=== PATIENT | female | born 1960 | race Two or more races ===

== ENCOUNTER 2017-09-26 16:45 | Inpatient (IN) | payer BC ==
[~2017-09-26] VITALS: Ht 152.4 cm; Wt 96.3 kg
[~2017-09-26 16:45] MED LIST: ADALIMUMAB; FISH OIL 1,2001 EAC5 PO; SUPER B COMPLE1 EAC1 PO; Z.0.ALLEGRA180 MG PO; Z.0.HYDROXYCHLOROQ20 PO; Z.0.NORCO 10-325 T1 PO; [UNRECOGNIZED DRUG - CODE]; [UNRECOGNIZED DRUG - OTHER]; [UNRECOGNIZED DRUG - OTHER] TP
[2017-09-26 19:28] LABS: BASOPHILS # (AUTO) 0.1 (0.0-0.1); BASOPHILS % 0.7 % (0.0-1.0); EOSINOPHILS # (AUTO) 0.1 (0.0-0.4); EOSINOPHILS % 0.5 % (0.0-6.0); HEMATOCRIT 34.8 % (34.2-44.1); HEMOGLOBIN 11.9 g/dL (12.0-16.0); LYMPHOCYTES # (AUTO) 1.3 (1.0-3.2); LYMPHOCYTES % 6.4 % (18.0-39.1); MEAN CORPUSCULAR HEMOGLOBIN 26.3 pg (28-32); MEAN CORPUSCULAR HGB CONC 34.2 g/dL (31-35); MONOCYTES # (AUTO) 2.1 (0.2-0.8); MONOCYTES % 10.3 % (4.4-11.3); NEUTROPHILS # (AUTO) 15.2 (2.1-6.9); NEUTROPHILS % 76.1 % (38.7-80.0); PLATELET COUNT 380 x10e3/uL (140-360); RED BLOOD COUNT 4.52 x10e6/uL (3.6-5.1); RED CELL DISTRIBUTION WIDTH 16.5 % (11.7-14.4)
[2017-09-26] MEDS ORDERED: CEFTRIAXONE SOD 1 GM VIAL IV ONE (19:30)
[2017-09-26] MEDS ORDERED: SODIUM CHLORIDE 0.9% 1000ML 1,000 ML IV ONE (19:30)
[2017-09-26] MEDS ORDERED: ASPIRIN 81 MG CHEW TAB PO ONE (19:30)
[2017-09-26] MEDS ORDERED: ACETAMINOPHEN 1000 MG/100 ML IV STA (19:40)
[2017-09-26 19:42] LABS: ALANINE AMINOTRANSFERASE 101 IU/L (0-55); ALBUMIN 2.1 g/dL (3.5-5.0); ALBUMIN/GLOBULIN RATIO 0.4 (0.8-2.0); ALKALINE PHOSPHATASE 123 IU/L (40-150); ANION GAP 21.3 mmol/L (8-16); BLOOD UREA NITROGEN 27 mg/dL (7-26); BUN/CREATININE RATIO 31 (6-25); CARBON DIOXIDE 23 mmol/L (22-29); CHLORIDE 86 mmol/L (98-107); CREATININE, SERUM 0.87 mg/dL (0.57-1.11); EST GLOMERULAR FILTRATION RATE > 60 ML/MIN (60-); GLUCOSE 81 mg/dL (74-118); POTASSIUM 3.3 mmol/L (3.5-5.1); SODIUM 127 mmol/L (136-145)
[2017-09-26 19:44] LABS: CLARITY,URINE CLOUDY (CLEAR); COLOR,URINE YELLOW (YELLOW); LEUKOCYTE ESTERASE ,URINE TRACE (NEGATIVE); NITRITE,URINE NEGATIVE (NEGATIVE)
[2017-09-26 19:45] LABS: BILIRUBIN,URINE 3+ (NEGATIVE); KETONES,URINE 2+ (NEGATIVE); PROTEIN,URINE DIPSTICK 2+ (NEGATIVE); URINE UROBILINOGEN 1 mg/dL (0.2 - 1)
[2017-09-26 19:55] LABS: BACTERIA,URINE FEW /HPF; EPITHELIAL CELLS,URINE MODERATE /LPF; MUCUS,URINE FEW (RARE); WBC,URINE (MAN) 21-50 /HPF (0-5)
[2017-09-26 19:59] LABS: CREATINE KINASE MB 2.1 ng/mL (0-5.0)
[2017-09-26 20:00] VITALS: BP 181/80
[2017-09-26 20:07] LABS: EOSINOPHILS % (MANUAL) 2 % (0-7); HYPOCHROMASIA MARKED; LYMPHOCYTES % (MANUAL) 9 % (19-48); MONOCYTES % (MANUAL) 11 % (3.4-9.0); NEUTROPHILS % (MANUAL) 75 % (40-74); POLYCHROMASIA FEW; RBC MORPHOLOGY COMMENT ABNORMAL
[2017-09-26 20:08] LABS: PLATELET ESTIMATE ADEQUATE
--- NOTE | 2017-09-26 20:08 | Diagnostic Imaging Report ---
EXAMINATION: PA and lateral views of the chest. COMPARISON: None CLINICAL HISTORY: Low blood oxygen, low O2 sats saturation, history of hypertension DISCUSSION: Lines/tubes: None. Lungs: Lungs are well inflated. Linear opacities likely located in the lingula, consistent with subsegmental atelectasis. No consolidation or pulmonary edema. Pleura: There is no pleural effusion or pneumothorax. Heart and mediastinum: Cardiomediastinal silhouette is unremarkable. Pulmonary vasculature is normal. Bones and soft tissues: No acute bony abnormalities. Minimal degenerative changes in the thoracic spine IMPRESSION: No acute cardiopulmonary abnormalities.
[2017-09-26 20:33] LABS: AMYLASE 32 U/L (25-125); LIPASE 35 U/L (8-78)
--- NOTE | 2017-09-26 22:41 | Diagnostic Imaging Report ---
EXAM: US ABDOMEN COMPLETE DATE: 09/26/2017 12:00 AM INDICATION: Evaluate liver and gallbladder, COMPARISON: None TECHNIQUE: Transverse and longitudinal davalos scale and color doppler sonographic images of the upper abdomen were obtained. FINDINGS: LIVER 16.6 cm in the right midclavicular line. Increased echogenicity, normal contour, no masses. SPLEEN 10.7 cm in maximum diameter. GALLBLADDER Gallbladder sludge without stones, wall-thickening or pericholecystic fluid. Negative sonographic Painter's sign. BILE DUCTS No intra nor extra-hepatic biliary dilation. Common bile duct measures 0.4 cm PANCREAS: Not well-visualized due to overlying bowel gas RIGHT KIDNEY: 11.6 cm Echogenicity: Normal Collecting System: No hydronephrosis Stones: None Cyst/Mass: None LEFT KIDNEY: 11.4 cm Echogenicity: Normal Collecting System: No hydronephrosis Stones: 0.5 cm echogenic focus of the lower pole, possibly a stone Cyst/Mass: 0.8 x 0.6 x 0.9 cm cyst VESSELS: Aorta: Not well-visualized due to overlying bowel gas Inferior Vena Cava: Visualized portions are normal Main Portal Vein: 1.0 cm, normal size with hepatopetal flow. FREE FLUID: None IMPRESSION: 1. Hepatic steatosis. 2. Gallbladder sludge without evidence of acute cholecystitis. Signed by: Dr Shannan Ayon MD on 09/26/2017 10:37 PM
[2017-09-26] MEDS ORDERED: [UNRECOGNIZED DRUG - OTHER] PO (22:51)
[2017-09-26] MEDS ORDERED: ZOFRAN ODT4 MG PO (22:51)
[2017-09-26] MEDS ORDERED: TRIAMTERENE-HCTZ1 EA PO (22:51)
[2017-09-26] MEDS ORDERED: NEXIUM40 MG PO (22:51)
[2017-09-26] MEDS ORDERED: NORCO 10-325 T1 EACH PO (22:51)
[2017-09-26] MEDS ORDERED: METFORMIN HCL500 MG PO (22:51)
[2017-09-26] MEDS ORDERED: MELOXICAM7.5 MG PO (22:51)
[2017-09-26] MEDS ORDERED: ULTRAM 50MG50 MG PO (22:51)
[2017-09-26] MEDS ORDERED: LOSARTAN POTAS100 MG PO (22:51)
[2017-09-26] MEDS ORDERED: ACETAMINOPHEN 1000 MG/100 ML IV PRN (23:15)
[2017-09-26] MEDS ORDERED: ONDANSETRON HCL INJ 2 MG/ML VIAL IV PRN (23:15)
[2017-09-26] MEDS ORDERED: CEFTRIAXONE SOD 1 GM VIAL IV SCH (23:15)
--- OUTSIDE RECORDS SUMMARY | 2017-09-26 23:19 | XMS REPORT ---
Author Author [facility] Address Unknown Phone Unavailable Care Team Providers Care Certified Tumor Registrar Name Role Phone DEREK READ Unavailable Unavailable Problems This patient has no known problems. Allergies, Adverse Reactions, Alerts This patient has no known allergies or adverse reactions. Medications This patient has no known medications. Results Test Description Test Time Test Comments Text Results Atomic Results Result Comments US ABDOMEN COMPLETE [place] [address] Patient Name: BUDDY BAY MR #: [id number] : 1960 Age/Sex: 56/F Req #: [id number] Adm Physician: Ordered by: LEONID ANDRE MD Report #: [id number] Location: ER Room/Bed: ___ Procedure: [id number] US/US ABDOMEN COMPLETE Exam Date: 09/26/17 Exam Time: 2151 REPORT STATUS: Signed EXAM: US ABDOMEN COMPLETE DATE: 09/26/2017 12:00 AM INDICATION: Evaluate liver and gallbladder, COMPARISON: None TECHNIQUE: Transverse and longitudinal davalos scale and color doppler sonographic images of the upper abdomen were obtained. FINDINGS: LIVER 16.6 cm in the right midclavicular line. Increased echogenicity, normal contour, no masses. SPLEEN 10.7 cm in maximum diameter. GALLBLADDER Gallbladder sludge without stones, wall-thickening or pericholecystic fluid. Negative sonographic Painter's sign. BILE DUCTS No intra nor extra-hepatic biliary dilation. Common bile duct measures 0.4 cm PANCREAS: Not well-visualized due to overlying bowel gas RIGHT KIDNEY: 11.6 cm Echogenicity: Normal Collecting System: No hydronephrosis Stones: None Cyst/Mass: None LEFT KIDNEY: 11.4 cm Echogenicity: Normal Collecting System: No hydronephrosis Stones: 0.5 cm echogenic focus of the lower pole, possibly a stone Cyst/Mass: 0.8 x 0.6 x 0.9 cm cyst VESSELS: Aorta: Not well- visualized due to overlying bowel gas Inferior Vena Cava: Visualized portions are normal Main Portal Vein: 1.0 cm, normal size with hepatopetal flow. FREE FLUID: None IMPRESSION: 1. Hepatic steatosis. 2. Gallbladder sludge without evidence of acute cholecystitis. Signed by: Dr Wayne Ayon MD on 09/26/2017 10:37 PM Dictated By: WAYNE AYON MD 36 Transcribed By: LEON on 09/26/172236 COPY TO: LEONID ANDRE MD
[2017-09-27 00:10] VITALS: BP_SYST 124; BP_SYST 154; BP_DIAS 74
[2017-09-27 04:00] VITALS: BP 189/88
[2017-09-27 06:29] LABS: BASOPHILS # (AUTO) 0.1 (0.0-0.1); BASOPHILS % 0.4 % (0.0-1.0); EOSINOPHILS # (AUTO) 0.1 (0.0-0.4); EOSINOPHILS % 0.6 % (0.0-6.0); HEMATOCRIT 34.6 % (34.2-44.1); HEMOGLOBIN 11.6 g/dL (12.0-16.0); LYMPHOCYTES # (AUTO) 0.9 (1.0-3.2); LYMPHOCYTES % 5.2 % (18.0-39.1); MEAN CORPUSCULAR HEMOGLOBIN 26.2 pg (28-32); MEAN CORPUSCULAR HGB CONC 33.5 g/dL (31-35); MEAN CORPUSCULAR VOLUME 78.3 fL (81-99); MONOCYTES # (AUTO) 1.8 (0.2-0.8); MONOCYTES % 10.2 % (4.4-11.3); NEUTROPHILS # (AUTO) 13.1 (2.1-6.9); NEUTROPHILS % 75.6 % (38.7-80.0); PLATELET COUNT 321 x10e3/uL (140-360); RED BLOOD COUNT 4.42 x10e6/uL (3.6-5.1); RED CELL DISTRIBUTION WIDTH 16.1 % (11.7-14.4)
[2017-09-27] MEDS: KCL 20MEQ/.9 SOD CHL 1,000 ML IV SCH ×2 (06:44→23:15)
[2017-09-27 06:54] LABS: ALANINE AMINOTRANSFERASE 147 IU/L (0-55); ALBUMIN 1.9 g/dL (3.5-5.0); ALBUMIN/GLOBULIN RATIO 0.4 (0.8-2.0); ALKALINE PHOSPHATASE 173 IU/L (40-150); ANION GAP 16.1 mmol/L (8-16); BLOOD UREA NITROGEN 22 mg/dL (7-26); BUN/CREATININE RATIO 29 (6-25); CALCIUM 9.2 mg/dL (8.4-10.2); CARBON DIOXIDE 24 mmol/L (22-29); CHLORIDE 93 mmol/L (98-107); CREATININE, SERUM 0.75 mg/dL (0.57-1.11); EST GLOMERULAR FILTRATION RATE > 60 ML/MIN (60-); GLUCOSE 96 mg/dL (74-118); POTASSIUM 3.1 mmol/L (3.5-5.1); SODIUM 130 mmol/L (136-145)
[2017-09-27 07:45] VITALS: BP 168/91
[2017-09-27 07:56] LABS: EOSINOPHILS % (MANUAL) 1 % (0-7); LYMPHOCYTES % (MANUAL) 5 % (19-48); MONOCYTES % (MANUAL) 13 % (3.4-9.0); NEUTROPHILS % (MANUAL) 78 % (40-74)
[2017-09-27 07:57] LABS: PLATELET ESTIMATE ADEQUATE; PLATELET MORPHOLOGY COMMENT NORMAL; RBC MORPHOLOGY COMMENT NORMAL
[2017-09-27 08:00] VITALS: BP 168/91
[2017-09-27] MEDS ORDERED: SINCALIDE 3 MCG/VIAL INJ ONE (09:55)
[2017-09-27] MEDS ORDERED: MORPHINE SULFATE 2 MG/ML SYR IV STA (11:58)
[2017-09-27 16:00] VITALS: BP 164/116
[2017-09-27] MEDS ORDERED: TRAMADOL HCL 50 MG TAB PO PRN (18:00)
[2017-09-27] MEDS ORDERED: ONDANSETRON HCL 4 MG ORAL DISINTEGRATING TAB PO PRN (18:00)
--- NOTE | 2017-09-27 18:56 | Diagnostic Imaging Report ---
EXAM: HIDA Scan with Morphine Challenge INDICATION: 56 F with chronic abdominal pain and nausea and vomiting x 10 days Report: Following the administration of 7 mCi of Tc-99m mebrofenin, dynamic images of the abdomen in the anterior projection were obtained through 60 minutes. An additional static image was obtained at 90 minutes. Morphine sulfate 4 mg was administered intravenously and additional images were obtained through 30 minutes. Perfusion of the liver is normal. Extraction of tracer from the blood pool by the liver parenchyma is mildly decreased. Tracer appears promptly with in the biliary tract. Tracer is seen in the small bowel by 8 minutes post injection of the tracer. The gallbladder does not fill during the initial 60 minutes of imaging or at 90 minutes but does fill promptly following administration of morphine. Impression: Filling of the gallbladder excludes acute cystic duct obstruction/acute cholecystitis. Signed by: Dr. Britany Hubbard M.D. on 09/27/2017 6:53 PM
[2017-09-27] MEDS ORDERED: DIATRIZOATE MEGL/DIATRIZOA SOD 30 ML BTL PO ONE (20:51)
[2017-09-27] MEDS ORDERED: SODIUM CHLORIDE 0.9% 50ML 50 ML ONE (22:40)
[2017-09-27] MEDS ORDERED: IOPAMIDOL 370 MG/ML 200 ML INFUS..BTL INJ ONE (22:40)
--- NOTE | 2017-09-27 22:51 | Diagnostic Imaging Report ---
EXAM: CT ABDOMEN/PELVIS W DATE: 09/27/2017 8:44 PM INDICATION: Gallbladder dysfunction, right upper quadrant pain COMPARISON: None TECHNIQUE: The abdomen and pelvis were scanned using a multidetector helical scanner. Coronal and sagittal reformations were obtained. Routine protocol performed. IV Contrast: 100 ml Isovue 370 FINDINGS: LOWER THORAX: Minimal atelectasis/scarring. LIVER/BILIARY: Hepatic steatosis. No masses. No ductal dilatation. GALLBLADDER: Unremarkable SPLEEN: Unremarkable PANCREAS: Unremarkable ADRENALS: Indeterminate 1.4 cm right adrenal nodule. KIDNEYS: Heterogeneous diminished enhancement of the right kidney with perinephric and periureteral stranding as well as urothelial thickening. Subcentimeter too small to characterize left interpolar renal hypodensity, statistically a cyst. GI TRACT: No wall thickening or evidence of obstruction. Normal appendix. Extensive diverticulosis. VESSELS: Mild atherosclerotic PERITONEUM/RETROPERITONEUM: No free air or fluid LYMPH NODES: No lymphadenopathy REPRODUCTIVE ORGANS/BLADDER: Unremarkable SOFT TISSUES: Unremarkable BONES: No suspicious bone lesions. IMPRESSION: Findings of right pyelonephritis/pyelitis. Signed by: Dr Shannan Ayon MD on 09/27/2017 10:47 PM
[2017-09-27] MEDS: CEFTRIAXONE SOD 1 GM VIAL IV SCH (23:07)
[2017-09-27] MEDS ORDERED: AMLODIPINE BESYLATE 5 MG TAB PO ONE (23:30)
[2017-09-28] VITALS: BP 169/98
[2017-09-28] MEDS: HYDROCODONE/APAP 10MG-325MG TAB PO PRN ×2 (03:11→18:07)
[2017-09-28 06:55] LABS: INR 1.17
[2017-09-28 06:56] LABS: PARTIAL THROMBOPLASTIN TIME 34.9 seconds (23.8-35.5)
[2017-09-28 07:07] LABS: ALBUMIN 1.7 g/dL (3.5-5.0); BILIRUBIN,DIRECT 1.4 mg/dL (0.0-0.5)
[2017-09-28 07:30] VITALS: BP 162/93
[2017-09-28] MEDS: KCL 20MEQ/.9 SOD CHL 1,000 ML IV SCH ×3 (07:43→20:58)
[2017-09-28 07:58] VITALS: BP 162/93
[2017-09-28] MEDS: METFORMIN HCL 500 MG TAB PO SCH (08:00)
[2017-09-28] MEDS: TRIAMTERENE/HCTZ 37.5-25 MG TAB PO SCH (09:00)
[2017-09-28] MEDS: MELOXICAM 7.5 MG TAB PO SCH (09:00)
[2017-09-28] MEDS: LOSARTAN POTASSIUM 100 MG TAB PO SCH (09:04)
[2017-09-28] MEDS: AMLODIPINE BESYLATE 5 MG TAB PO SCH ×2 (09:06→17:47)
[2017-09-28] MEDS: PANTOPRAZOLE SOD 40 MG TABEC PO SCH (09:06)
[2017-09-28 09:56] LABS: BASOPHILS # (AUTO) 0.1 (0.0-0.1); BASOPHILS % 0.5 % (0.0-1.0); EOSINOPHILS # (AUTO) 0.2 (0.0-0.4); HEMATOCRIT 31.4 % (34.2-44.1); HEMOGLOBIN 10.4 g/dL (12.0-16.0); LYMPHOCYTES # (AUTO) 1.2 (1.0-3.2); LYMPHOCYTES % 7.8 % (18.0-39.1); MEAN CORPUSCULAR HEMOGLOBIN 25.8 pg (28-32); MEAN CORPUSCULAR HGB CONC 33.1 g/dL (31-35); MEAN CORPUSCULAR VOLUME 77.9 fL (81-99); MONOCYTES # (AUTO) 1.8 (0.2-0.8); MONOCYTES % 11.6 % (4.4-11.3); NEUTROPHILS # (AUTO) 10.3 (2.1-6.9); NEUTROPHILS % 65.7 % (38.7-80.0); PLATELET COUNT 390 x10e3/uL (140-360); RED BLOOD COUNT 4.03 x10e6/uL (3.6-5.1); RED CELL DISTRIBUTION WIDTH 16.5 % (11.7-14.4)
[2017-09-28 12:00] VITALS: BP 162/85
[2017-09-28] MEDS ORDERED: POTASSIUM CHLORIDE 20 MEQ TAB CR PO ONE (12:00)
[2017-09-28 16:00] VITALS: BP 182/96
--- NOTE | 2017-09-28 17:24 | Diagnostic Imaging Report ---
PROCEDURE: MR ADOMEN/MRCP WITHOUT CONTRAST TECHNIQUE: Axial T1 in and out of phase, axial T2, fat-sat, coronal, T2 with and without fat-sat, axial DWI, and ADC MR images were performed. No intravenous gadolinium was given. Heavily T2-weighted MRCP images were obtained, including thick and thin slab ASSETT, 3-D breath-hold FRFSE, and 3-D reconstructions. COMPARISON: [facility], CT, CT ABDOMEN/PELVIS W, 09/27/2017, 21:59. INDICATIONS: Right upper quadrant pain FINDINGS: LACK OF GADOLINIUM DECREASES SENSITIVITY FOR DETECTION OF INTRA-ABDOMINAL PATHOLOGY. LOWER THORAX: Unremarkable. LIVER: Borderline to minimal hepatomegaly, measuring 15.8 cm in the right midclavicular line. Normal contour. Mild signal dropout on out of phase images, suggesting mild fatty infiltration. No focal hepatic lesions. BILIARY: No intra-or extrahepatic biliary ductal dilation. The common bile duct is normal in caliber, measuring approximately 3-4 mm at the tomy hepatis and 3 mm of the pancreatic head. Normal luminal contour, with normal tapering to the ampulla. No intraluminal filling defects, strictures, or extrinsic compressions. Gallbladder is unremarkable, without stones, sludge, wall thickening, or pericholecystic fluid. PANCREAS: No mass or ductal dilatation. Incidental note is made of pancreas divisum. SPLEEN: Mild splenomegaly, measuring approximately 14.2 cm in AP diameter ADRENALS: No nodules. KIDNEYS: Heterogeneous signal in the right kidney, particularly the lower pole, with wedge-shaped areas of decreased T2 signal (for example series 3, images 15-18. No hydronephrosis or obstruction. Bilateral subcentimeter T2 hyperintense, T1 hypointense lesions which are too small to characterize, but likely represent small cysts. PERITONEUM / RETROPERITONEUM: No upper abdominal free fluid. LYMPH NODES: No upper abdominal lymphadenopathy. VESSELS: Normal flow voids are identified. BONES AND SOFT TISSUES: No abnormal bone marrow signal. Soft tissues are grossly unremarkable. IMPRESSION: 1. no intra-or extrahepatic biliary ductal dilation. No MR evidence of choledocholithiasis. 2. Borderline to minimal hepatomegaly, with mild fatty infiltration. No focal lesions. 3. Mild splenomegaly. 4. Heterogeneous signal in the right kidney, particularly the lower pole, which cannot be further assessed given the lack of intravenous contrast. Please refer to CT abdomen and pelvis performed yesterday for further detail. Toño Guevara M.D. Dictated by: Toño Guevara M.D. on 09/28/2017 at 17:25 Electronically approved by: Toño Guevara M.D. on 09/28/2017 at 17:25
[2017-09-28 20:00] VITALS: BP 179/112
[2017-09-28] MEDS: CEFTRIAXONE SOD 1 GM VIAL IV SCH (20:58)
[2017-09-29] VITALS (7 sets, daily range): BP systolic 168–186; BP diastolic 79–105
[2017-09-29] MEDS ORDERED: METOPROLOL SUCCINATE 25 MG TAB XL PO ONE (02:30)
[2017-09-29 06:41] LABS: BASOPHILS # (AUTO) 0.1 (0.0-0.1); BASOPHILS % 0.3 % (0.0-1.0); EOSINOPHILS # (AUTO) 0.2 (0.0-0.4); HEMATOCRIT 32.8 % (34.2-44.1); HEMOGLOBIN 10.6 g/dL (12.0-16.0); LYMPHOCYTES # (AUTO) 1.1 (1.0-3.2); LYMPHOCYTES % 7.7 % (18.0-39.1); MEAN CORPUSCULAR HEMOGLOBIN 25.3 pg (28-32); MEAN CORPUSCULAR HGB CONC 32.3 g/dL (31-35); MEAN CORPUSCULAR VOLUME 78.3 fL (81-99); MONOCYTES # (AUTO) 1.3 (0.2-0.8); NEUTROPHILS # (AUTO) 9.7 (2.1-6.9); NEUTROPHILS % 66.1 % (38.7-80.0); PLATELET COUNT 397 x10e3/uL (140-360); RED BLOOD COUNT 4.19 x10e6/uL (3.6-5.1); RED CELL DISTRIBUTION WIDTH 16.5 % (11.7-14.4)
[2017-09-29 07:09] LABS: ALANINE AMINOTRANSFERASE 168 IU/L (0-55); ALBUMIN/GLOBULIN RATIO 0.4 (0.8-2.0); ALKALINE PHOSPHATASE 195 IU/L (40-150); ANION GAP 12.6 mmol/L (8-16); BLOOD UREA NITROGEN 7 mg/dL (7-26); BUN/CREATININE RATIO 11 (6-25); CALCIUM 8.8 mg/dL (8.4-10.2); CARBON DIOXIDE 26 mmol/L (22-29); CHLORIDE 100 mmol/L (98-107); CREATININE, SERUM 0.66 mg/dL (0.57-1.11); EST GLOMERULAR FILTRATION RATE > 60 ML/MIN (60-); GLUCOSE 125 mg/dL (74-118); POTASSIUM 3.6 mmol/L (3.5-5.1); SODIUM 135 mmol/L (136-145)
[2017-09-29] MEDS: KCL 20MEQ/.9 SOD CHL 1,000 ML IV SCH ×3 (07:15→23:15)
[2017-09-29 07:17] LABS: FERRITIN 441.67 ng/mL (4.63-204.00)
[2017-09-29] MEDS: METFORMIN HCL 500 MG TAB PO SCH (08:00)
[2017-09-29] MEDS: LOSARTAN POTASSIUM 100 MG TAB PO SCH (08:27)
[2017-09-29] MEDS: AMLODIPINE BESYLATE 5 MG TAB PO SCH ×2 (08:27→17:00)
[2017-09-29 08:58] LABS: BAND NEUTROPHILS % (MANUAL) 11 %; LYMPHOCYTES % (MANUAL) 4 % (19-48); METAMYELOCYTES % (MANUAL) 9 % (0-0); MONOCYTES % (MANUAL) 10 % (3.4-9.0); MYELOCYTES % (MANUAL) 3 % (0-0); NEUTROPHILS % (MANUAL) 62 % (40-74)
[2017-09-29] MEDS: PANTOPRAZOLE SOD 40 MG TABEC PO SCH (09:00)
[2017-09-29] MEDS: TRIAMTERENE/HCTZ 37.5-25 MG TAB PO SCH ×2 (09:00→12:21)
[2017-09-29] MEDS: MELOXICAM 7.5 MG TAB PO SCH (09:00)
[2017-09-29 09:07] LABS: ANISOCYTOSIS SLIGHT; HYPOCHROMASIA SLIGHT; PLATELET ESTIMATE ADEQUATE; PLATELET MORPHOLOGY COMMENT FEW LARGE; RBC MORPHOLOGY COMMENT NORMAL
[2017-09-29 10:09] LABS: FOLATE 16.3 ng/mL (7.0-15.4)
[2017-09-29] MEDS ORDERED: LABETALOL HCL 5 MG/ML 20ML VIAL IV ONE ×2 (12:00→16:27)
[2017-09-29] MEDS ORDERED: LIDOCAINE HCL 2% LOCAL INJ 5 ML SDV VIAL INJ ONE (15:07)
[2017-09-29] MEDS ORDERED: PROPOFOL IV EMULSION 10 MG/ML 50 ML VIAL ONE (15:07)
[2017-09-29] MEDS ORDERED: FENTANYL CITRATE/PF 100MCG/2 ML INJ ONE (15:27)
[2017-09-29] MEDS ORDERED: MIDAZOLAM HCL 2 MG/2 ML VIAL ONE (15:27)
[2017-09-29] MEDS: HYDROCODONE/APAP 10MG-325MG TAB PO PRN (19:58)
[2017-09-29] MEDS: CEFTRIAXONE SOD 1 GM VIAL IV SCH (20:37)
[2017-09-29] MEDS: LABETALOL HCL 5 MG/ML 20ML VIAL IV PRN (21:17)
[2017-09-30] VITALS: BP 139/89
--- NOTE | 2017-09-30 02:06 | Operative Report ---
DATE OF PROCEDURE: September 29, 2017 REFERRING PHYSICIAN: Dr. Cory Arrington PROCEDURE PERFORMED: Esophagogastroduodenoscopy with biopsies. INDICATIONS FOR ESOPHAGOGASTRODUODENOSCOPY: Upper abdominal pain, history of heartburn, indigestion. MEDICATION: Patient was done under MAC. Please see anesthesiologist's note. PROCEDURE: With patient in left lateral decubitus position, flexible fiberoptic Olympus gastroscope was introduced into the esophagus under direct visualization without any difficulty. There was some patchy erythema noted in distal esophagus. The scope was then advanced with ease into the stomach. Mucosa overlying the antrum revealed some patchy areas of erythema [id number]-moderate edema and biopsies were obtained and sent to stain for H. pylori. Several hyperplastic-appearing polyps were noted in the body of the stomach and some were partially excised with cold biopsy forceps. The pylorus appeared to be of normal contour and shape, was intubated with ease and the scope was advanced all the way to the 2nd portion of the duodenum. The scope was then withdrawn slowly. Mucosa overlying the proximal 2nd portion appeared to be within normal limits. A minute nodule was noted in the duodenal bulb that was biopsied. The scope was then withdrawn back into the stomach and retroflexed and mucosa overlying the fundus and the cardia appeared to be within normal limits. The scope was then straightened out. The stomach was decompressed. The scope was subsequently withdrawn. Patient tolerated the procedure well. IMPRESSIONS 1. Distal esophagitis. 2. Gastritis biopsied. Biopsies sent to stain for Helicobacter pylori. 3. Gastric polyps, body, hyperplastic appearing, some partially excised with a cold-biopsy forceps. 4. Duodenal bulb nodule biopsied. PLAN: Follow up histology. Initiate Protonix 40 mg 1 p.o. q.a.m. a.c. Job#: [id number] CQ cc:MD OMA ARZOLA MD
[2017-09-30 04:00] VITALS: BP 178/84
[2017-09-30] MEDS: LABETALOL HCL 5 MG/ML 20ML VIAL IV PRN (05:53)
[2017-09-30] MEDS: HYDROCODONE/APAP 10MG-325MG TAB PO PRN ×2 (06:28→13:26)
[2017-09-30 06:31] LABS: BASOPHILS # (AUTO) 0.1 (0.0-0.1); BASOPHILS % 0.5 % (0.0-1.0); EOSINOPHILS # (AUTO) 0.2 (0.0-0.4); HEMATOCRIT 34.3 % (34.2-44.1); HEMOGLOBIN 11.5 g/dL (12.0-16.0); LYMPHOCYTES # (AUTO) 1.3 (1.0-3.2); LYMPHOCYTES % 7.8 % (18.0-39.1); MEAN CORPUSCULAR HGB CONC 33.5 g/dL (31-35); MEAN CORPUSCULAR VOLUME 77.6 fL (81-99); MONOCYTES # (AUTO) 1.8 (0.2-0.8); MONOCYTES % 10.9 % (4.4-11.3); NEUTROPHILS # (AUTO) 10.7 (2.1-6.9); NEUTROPHILS % 65.3 % (38.7-80.0); PLATELET COUNT 457 x10e3/uL (140-360); RED BLOOD COUNT 4.42 x10e6/uL (3.6-5.1); RED CELL DISTRIBUTION WIDTH 16.5 % (11.7-14.4)
[2017-09-30] MEDS: KCL 20MEQ/.9 SOD CHL 1,000 ML IV SCH ×2 (07:15→12:34)
[2017-09-30 08:00] VITALS: BP 132/85
[2017-09-30 08:35] VITALS: BP 132/85
[2017-09-30] MEDS: AMLODIPINE BESYLATE 5 MG TAB PO SCH ×2 (08:35→17:15)
[2017-09-30] MEDS: PANTOPRAZOLE SOD 40 MG TABEC PO SCH (08:35)
[2017-09-30] MEDS: METFORMIN HCL 500 MG TAB PO SCH (08:35)
[2017-09-30] MEDS: LOSARTAN POTASSIUM 100 MG TAB PO SCH (08:35)
[2017-09-30] MEDS: MELOXICAM 7.5 MG TAB PO SCH (08:51)
[2017-09-30 10:44] LABS: BAND NEUTROPHILS % (MANUAL) 1 %; EOSINOPHILS % (MANUAL) 1 % (0-7); HYPOCHROMASIA SLIGHT; LYMPHOCYTES % (MANUAL) 16 % (19-48); MONOCYTES % (MANUAL) 11 % (3.4-9.0); NEUTROPHILS % (MANUAL) 67 % (40-74); PLATELET ESTIMATE SLIGHTLY INCREASED; PLATELET MORPHOLOGY COMMENT NORMAL; RBC MORPHOLOGY COMMENT NORMAL
[2017-09-30 16:59] VITALS: BP 126/68
[2017-09-30 20:00] VITALS: BP 140/99
[2017-09-30] MEDS: CEFTRIAXONE SOD 1 GM VIAL IV SCH (21:00)
[2017-09-30] MEDS ORDERED: HYDROCODONE/APAP 5MG-325MG TAB PO PRN (22:00)
[2017-10-01] VITALS: BP 174/106
[2017-10-01] MEDS: LABETALOL HCL 5 MG/ML 20ML VIAL IV PRN (00:15)
[2017-10-01 04:00] VITALS: BP 137/79
[2017-10-01 07:27] LABS: BASOPHILS # (AUTO) 0.1 (0.0-0.1); BASOPHILS % 0.5 % (0.0-1.0); EOSINOPHILS # (AUTO) 0.1 (0.0-0.4); EOSINOPHILS % 0.9 % (0.0-6.0); HEMATOCRIT 33.9 % (34.2-44.1); HEMOGLOBIN 11.3 g/dL (12.0-16.0); LYMPHOCYTES # (AUTO) 1.4 (1.0-3.2); LYMPHOCYTES % 9.6 % (18.0-39.1); MEAN CORPUSCULAR HEMOGLOBIN 26.4 pg (28-32); MEAN CORPUSCULAR HGB CONC 33.3 g/dL (31-35); MEAN CORPUSCULAR VOLUME 79.2 fL (81-99); MONOCYTES # (AUTO) 1.6 (0.2-0.8); MONOCYTES % 11.2 % (4.4-11.3); NEUTROPHILS # (AUTO) 9.3 (2.1-6.9); NEUTROPHILS % 63.6 % (38.7-80.0); PLATELET COUNT 475 x10e3/uL (140-360); RED BLOOD COUNT 4.28 x10e6/uL (3.6-5.1); RED CELL DISTRIBUTION WIDTH 16.9 % (11.7-14.4)
[2017-10-01 07:48] LABS: ALANINE AMINOTRANSFERASE 109 IU/L (0-55); ALBUMIN 2.1 g/dL (3.5-5.0); ALBUMIN/GLOBULIN RATIO 0.5 (0.8-2.0); ALKALINE PHOSPHATASE 155 IU/L (40-150); ANION GAP 11.7 mmol/L (8-16); BLOOD UREA NITROGEN 9 mg/dL (7-26); BUN/CREATININE RATIO 13 (6-25); CALCIUM 9.1 mg/dL (8.4-10.2); CARBON DIOXIDE 29 mmol/L (22-29); CHLORIDE 98 mmol/L (98-107); CREATININE, SERUM 0.71 mg/dL (0.57-1.11); EST GLOMERULAR FILTRATION RATE > 60 ML/MIN (60-); GLUCOSE 109 mg/dL (74-118); POTASSIUM 3.7 mmol/L (3.5-5.1); SODIUM 135 mmol/L (136-145)
[2017-10-01] MEDS: MELOXICAM 7.5 MG TAB PO SCH (09:00)
[2017-10-01 09:02] VITALS: BP 167/89
[2017-10-01] MEDS: LOSARTAN POTASSIUM 100 MG TAB PO SCH (09:02)
[2017-10-01] MEDS: METFORMIN HCL 500 MG TAB PO SCH (09:02)
[2017-10-01] MEDS: PANTOPRAZOLE SOD 40 MG TABEC PO SCH (09:02)
[2017-10-01] MEDS: TRIAMTERENE/HCTZ 37.5-25 MG TAB PO SCH (09:02)
[2017-10-01] MEDS: AMLODIPINE BESYLATE 5 MG TAB PO SCH ×2 (09:02→16:57)
[2017-10-01 12:12] VITALS: BP 131/78
[2017-10-01 12:34] LABS: BAND NEUTROPHILS % (MANUAL) 6 %; LYMPHOCYTES % (MANUAL) 20 % (19-48); MONOCYTES % (MANUAL) 10 % (3.4-9.0); NEUTROPHILS % (MANUAL) 64 % (40-74)
[2017-10-01 12:35] LABS: PLATELET ESTIMATE ADEQUATE; PLATELET MORPHOLOGY COMMENT NORMAL; RBC MORPHOLOGY COMMENT NORMAL
--- NOTE | 2017-10-01 15:55 | Progress Note ---
DATE: INTERNAL MEDICINE PROGRESS NOTE Patient is doing well. No significant complaint. OBJECTIVE VITALS: Blood pressure 131/78, temperature 98.2, heart rate 100 per minute, respiratory rate is 18 per minute, oxygen saturation 98%. HEART: Shows regular rhythm. Normal S1 and S2 sounds. LUNGS: Clear bilaterally. ABDOMEN: Soft. No tension or visceromegaly. BLOOD WORK: We have BMP with a sodium 135, potassium 3.7, chloride 98, CO2 29, BUN 9, creatinine 0.71, glucose 109. On the CBC, white blood count is 14.6, hemoglobin 11.3, hematocrit 33.9, and platelet count 475,000. PT 14, PTT 34.9, INR 1.17. AST 55, ALT 109, total bilirubin 1.3, alkaline phosphatase 155. FINAL IMPRESSION 1. Elevated liver function tests which is significantly improved compared to before. 2. Leukocytosis which is significantly improved also. No fever. 3. Hypertension. 4. Rheumatoid arthritis. 5. Fibromyalgia. 6. Gastritis. 7. Pyelonephritis. The patient wants to go home. We are going to check with Dr. Lorenzo Arrington if she is able to go home today. Medications on possible discharge are going to be: 1. Protonix 40 mg daily. 2. Losartan 100 mg daily. 3. Meloxicam 7.5 mg daily. 4. Metformin 500 mg daily. 5. Amlodipine 5 mg twice a day. 6. Tramadol 50 mg at night p.r.n. for sleep. 7. Triamterene 1 tablet daily. 8. IV antibiotics. Tentative discharge for today if okay with Dr. Lorenzo Arrington. Complete the antibiotic for a total of 10 days of antibiotics. Discharge today if okay with Dr. Lorenzo Arrington. Job#: [id number] [place]
--- NOTE | 2017-10-01 15:58 | Progress Note ---
DATE: ADDENDUM INTERNAL MEDICINE PROGRESS NOTE The patient had an MRCP done, which showed no evidence of any intrahepatic biliary duct dilatation. Some minimal hepatomegaly with mild fatty infiltration and no nonfocal lesions. Mild hepatomegaly and some seen on the right kidney. The LFTs have significantly improved. So tentative discharge today if okay with Dr. Lorenzo Arrington. Also, the blood culture and urine culture completely negative. Job#: [id number] TOMI
[2017-10-01 16:00] VITALS: BP 142/81
== END 2017-10-01 17:32 | disposition home or self-care (01) | DRG 690 ==
LOC: ER 16:45 → ERHOLD 23:15 → MED/SURG2 23:30
PROC: 0DB78ZX Excision of Stomach, Pylorus, Via Natural or Artificial Opening Endoscopic, Diagnostic (ICD-10-PCS; 2017-09-29)
PROC: 0DB68ZZ Excision of Stomach, Via Natural or Artificial Opening Endoscopic (ICD-10-PCS; 2017-09-29)
PROC: 0DB98ZX Excision of Duodenum, Via Natural or Artificial Opening Endoscopic, Diagnostic (ICD-10-PCS; principal; 2017-09-29 16:00)
DX: N10 Acute pyelonephritis (principal); K76.0 Fatty (change of) liver, not elsewhere classified; Z68.41 Body mass index [BMI] 40.0-44.9, adult; K20.9 Esophagitis, unspecified; K31.7 Polyp of stomach and duodenum; K29.70 Gastritis, unspecified, without bleeding; K29.80 Duodenitis without bleeding; I10 Essential (primary) hypertension; M06.9 Rheumatoid arthritis, unspecified; M79.7 Fibromyalgia; E87.6 Hypokalemia; D63.8 Anemia in other chronic diseases classified elsewhere; E66.01 Morbid (severe) obesity due to excess calories
CPT/HCPCS: 36415; 43239; 71046; 74177; 74181; 76700; 78227; 80053; 80076; 81001; 82150; 82550; 82553; 82607; 82728; 82746; 83540; 83605; 83690; 84466; 84484; 85025; 85045; 85610; 85730; 87040; 87086; 88305; 88312; 93005; 99284; A9537; J0696; J2001; J2250; J2270; J2805; J7030; Q9967

== ENCOUNTER 2021-11-19 16:05 | Inpatient (IN) | payer BC ==
[~2021-11-19] VITALS: Ht 152.4 cm; Wt 94.8 kg
[~2021-11-19 16:05] MED LIST changes: +LOSARTAN POTAS100 MG PO; +MELOXICAM7.5 MG PO; +METFORMIN HCL500 MG PO; +NEXIUM40 MG PO; +NORCO 10-325 T1 EACH PO; +TRIAMTERENE-HCTZ1 EA PO; +ULTRAM 50MG50 MG PO; +ZOFRAN ODT4 MG PO; +[UNRECOGNIZED DRUG - OTHER] PO
[2021-11-19] MEDS ORDERED: ONDANSETRON HCL INJ 2MG/ML 2ML 2 MG/ML VIAL IV STA (16:33)
[2021-11-19] MEDS ORDERED: SODIUM CHLORIDE 0.9% 1000ML 1,000 ML IV STA ×2 (16:33→18:18)
[2021-11-19] MEDS ORDERED: ASPIRIN 81 MG CHEW TAB PO ONE (16:45)
[2021-11-19 16:58] LABS: BASOPHILS # (AUTO) 0.1 (0.0-0.1); BASOPHILS % 0.9 % (0.0-1.0); EOSINOPHILS # (AUTO) 0.1 (0.0-0.4); EOSINOPHILS % 0.7 % (0.0-6.0); HEMATOCRIT 38.6 % (34.2-44.1); HEMOGLOBIN 12.1 g/dL (12.0-16.0); LYMPHOCYTES # (AUTO) 1.2 (1.0-3.2); LYMPHOCYTES % 9.6 % (18.0-39.1); MEAN CORPUSCULAR HEMOGLOBIN 28.7 pg (28-32); MEAN CORPUSCULAR HGB CONC 31.3 g/dL (31-35); MEAN CORPUSCULAR VOLUME 91.5 fL (81-99); MONOCYTES # (AUTO) 1.2 (0.2-0.8); MONOCYTES % 9.4 % (4.4-11.3); NEUTROPHILS # (AUTO) 9.5 (2.1-6.9); NEUTROPHILS % 75.4 % (38.7-80.0); PLATELET COUNT 707 x10e3/uL (140-360); RED BLOOD COUNT 4.22 x10e6/uL (3.6-5.1); RED CELL DISTRIBUTION WIDTH 14.6 % (11.7-14.4)
[2021-11-19] MEDS ORDERED: METOPROLOL TARTRATE INJ 1 MG/ML VIAL IV STA ×2 (17:08→19:51)
[2021-11-19] MEDS ORDERED: DILTIAZEM HCL 5 MG/ML 5 ML VIAL IV STA (17:08)
[2021-11-19] MEDS ORDERED: DIGOXIN INJ 0.25 MG/ML 2 ML AMP IV STA (17:08)
[2021-11-19 17:12] LABS: ALBUMIN/GLOBULIN RATIO 0.6 (0.8-2.0); ANION GAP 25.8 mmol/L (8-16); CREATININE, SERUM 1.16 mg/dL (0.57-1.11); POTASSIUM 3.8 mmol/L (3.5-5.1)
[2021-11-19 17:19] LABS: CREATINE KINASE MB 2.1 ng/mL (0-5.0)
[2021-11-19] MEDS ORDERED: IOPAMIDOL 370 MG/ML 100 ML INFUS..BTL INJ ONE (18:38)
[2021-11-19 20:00] VITALS: BP 155/109
[2021-11-19 20:14] LABS: CREATINE KINASE MB 2.2 ng/mL (0-5.0)
[2021-11-19 21:30] VITALS: BP 190/97
[2021-11-19] MEDS ORDERED: TRAMADOL HCL 50 MG TAB PO PRN (22:00)
[2021-11-19] MEDS ORDERED: HYDROCODONE/APAP 10MG-325MG TAB PO PRN (22:00)
[2021-11-19] MEDS ORDERED: ONDANSETRON HCL INJ 2MG/ML 2ML 2 MG/ML VIAL IV PRN (22:00)
[2021-11-19] MEDS: ONDANSETRON HCL INJ 2MG/ML 2ML 2 MG/ML VIAL IV PRN (22:14)
[2021-11-19] MEDS: Morphine 2mg Syringe 2 MG/ML SYR IV PRN (22:14)
[2021-11-19] MEDS: SODIUM CHLORIDE 0.9% 1000ML 1,000 ML IV SCH (22:26)
[2021-11-20] VITALS (8 sets, daily range): BP systolic 137–211; BP diastolic 76–115
[2021-11-20] MEDS: METOPROLOL TARTRATE INJ 1 MG/ML VIAL IV PRN ×2 (01:15→08:30)
[2021-11-20] MEDS ORDERED: METOPROLOL SUCC50 MG PO (02:37)
[2021-11-20] MEDS: ONDANSETRON HCL INJ 2MG/ML 2ML 2 MG/ML VIAL IV PRN ×3 (02:53→21:02)
[2021-11-20] MEDS: Morphine 2mg Syringe 2 MG/ML SYR IV PRN ×4 (02:53→21:02)
[2021-11-20] MEDS: SODIUM CHLORIDE 0.9% 1000ML 1,000 ML IV SCH ×3 (03:41→21:01)
[2021-11-20] MEDS: HYDRALAZINE HCL 20 MG/ML VIAL IV PRN ×2 (04:59→08:04)
[2021-11-20 06:48] LABS: BASOPHILS # (AUTO) 0.1 (0.0-0.1); BASOPHILS % 0.7 % (0.0-1.0); EOSINOPHILS # (AUTO) 0.2 (0.0-0.4); EOSINOPHILS % 1.3 % (0.0-6.0); HEMOGLOBIN 10.9 g/dL (12.0-16.0); LYMPHOCYTES # (AUTO) 1.3 (1.0-3.2); LYMPHOCYTES % 10.2 % (18.0-39.1); MEAN CORPUSCULAR HEMOGLOBIN 28.5 pg (28-32); MEAN CORPUSCULAR HGB CONC 30.3 g/dL (31-35); MEAN CORPUSCULAR VOLUME 94.2 fL (81-99); MONOCYTES # (AUTO) 1.4 (0.2-0.8); MONOCYTES % 11.2 % (4.4-11.3); NEUTROPHILS # (AUTO) 9.2 (2.1-6.9); NEUTROPHILS % 72.4 % (38.7-80.0); PLATELET COUNT 478 x10e3/uL (140-360); RED BLOOD COUNT 3.82 x10e6/uL (3.6-5.1); RED CELL DISTRIBUTION WIDTH 15.7 % (11.7-14.4)
[2021-11-20] MEDS: LOSARTAN POTASSIUM 100 MG TAB PO SCH (08:34)
[2021-11-20] MEDS: TRIAMTERENE/HCTZ 37.5-25 MG TAB PO SCH (08:34)
[2021-11-20] MEDS: METOPROLOL SUCCINATE 50 MG TAB XL PO SCH (08:34)
[2021-11-20 08:54] LABS: ALBUMIN 2.8 g/dL (3.5-5.0); ALBUMIN/GLOBULIN RATIO 0.7 (0.8-2.0); ANION GAP 16.8 mmol/L (8-16); CALCIUM 9.7 mg/dL (8.4-10.2); CREATININE, SERUM 0.69 mg/dL (0.57-1.11); POTASSIUM 3.8 mmol/L (3.5-5.1)
[2021-11-20] MEDS ORDERED: PANTOPRAZOLE SOD 40 MG TABEC PO SCH (09:00)
[2021-11-20] MEDS: MELOXICAM 7.5 MG TAB PO SCH (09:00)
[2021-11-20] MEDS: METFORMIN HCL 500 MG TAB PO SCH (09:00)
[2021-11-20] MEDS: KETOROLAC TROMETHAMINE 30 MG/ML VIAL IV PRN (09:43)
[2021-11-20 11:07] LABS: CREATINE KINASE MB 2.3 ng/mL (0-5.0)
[2021-11-20] MEDS ORDERED: METOPROLOL SUCCINATE 50 MG TAB XL PO NR (16:30)
[2021-11-21] VITALS (8 sets, daily range): BP systolic 136–172; BP diastolic 75–98
[2021-11-21] MEDS: ONDANSETRON HCL INJ 2MG/ML 2ML 2 MG/ML VIAL IV PRN ×2 (00:30→21:15)
[2021-11-21] MEDS: Morphine 2mg Syringe 2 MG/ML SYR IV PRN ×2 (00:30→14:16)
[2021-11-21] MEDS: SODIUM CHLORIDE 0.9% 1000ML 1,000 ML IV SCH ×3 (04:54→21:15)
[2021-11-21] MEDS: METOPROLOL TARTRATE INJ 1 MG/ML VIAL IV PRN (06:15)
[2021-11-21] MEDS: METOPROLOL SUCCINATE 50 MG TAB XL PO SCH (09:00)
[2021-11-21] MEDS: METFORMIN HCL 500 MG TAB PO SCH (09:00)
[2021-11-21] MEDS: MELOXICAM 7.5 MG TAB PO SCH (09:00)
[2021-11-21] MEDS: TRIAMTERENE/HCTZ 37.5-25 MG TAB PO SCH (09:00)
[2021-11-21] MEDS: LOSARTAN POTASSIUM 100 MG TAB PO SCH (09:00)
[2021-11-21] MEDS: KETOROLAC TROMETHAMINE 30 MG/ML VIAL IV PRN ×2 (09:27→21:15)
[2021-11-22] VITALS (7 sets, daily range): BP systolic 145–166; BP diastolic 81–92
[2021-11-22] MEDS: SODIUM CHLORIDE 0.9% 1000ML 1,000 ML IV SCH ×2 (04:29→12:30)
[2021-11-22] MEDS: TRIAMTERENE/HCTZ 37.5-25 MG TAB PO SCH (09:00)
[2021-11-22] MEDS: MELOXICAM 7.5 MG TAB PO SCH (09:00)
[2021-11-22] MEDS ORDERED: METOPROLOL SUCCINATE 50 MG TAB XL PO SCH (09:00)
[2021-11-22] MEDS: LOSARTAN POTASSIUM 100 MG TAB PO SCH (09:01)
[2021-11-22] MEDS: Morphine 2mg Syringe 2 MG/ML SYR IV PRN (09:03)
[2021-11-22] MEDS ORDERED: PROPOFOL IV EMULSION 10 MG/ML 20 ML VIAL ONE (11:56)
[2021-11-22] MEDS ORDERED: LIDOCAINE HCL 2% LOCAL INJ 5 ML SDV VIAL INJ ONE (11:56)
[2021-11-22] MEDS ORDERED: FENTANYL CITRATE/PF 100MCG/2 ML INJ ONE (12:06)
[2021-11-22] MEDS ORDERED: MIDAZOLAM HCL 2 MG/2 ML VIAL ONE (12:06)
[2021-11-22] MEDS: METFORMIN HCL 500 MG TAB PO SCH (16:59)
[2021-11-23] MEDS ORDERED: PANTOPRAZOLE SOD 40 MG TABEC PO SCH (09:00)
== END 2021-11-22 20:14 | disposition home or self-care (01) | DRG 392 ==
LOC: ER 17:08 → ERHOLD 20:03 → MED/SURG2 21:44 → OBSVTOIN 11-22 09:17
PROVIDERS: ADMIT Family Medicine; ATTEND Internal Medicine
PROC: 0DB78ZX Excision of Stomach, Pylorus, Via Natural or Artificial Opening Endoscopic, Diagnostic (ICD-10-PCS; 2021-11-22)
PROC: 0D758ZZ Dilation of Esophagus, Via Natural or Artificial Opening Endoscopic (ICD-10-PCS; 2021-11-22)
PROC: 0DB38ZX Excision of Lower Esophagus, Via Natural or Artificial Opening Endoscopic, Diagnostic (ICD-10-PCS; principal; 2021-11-22 14:39)
DX: K21.00 Gastro-esophageal reflux disease with esophagitis, without bleeding (principal); I47.1 Supraventricular tachycardia; Z68.41 Body mass index [BMI] 40.0-44.9, adult; E66.01 Morbid (severe) obesity due to excess calories; E11.22 Type 2 diabetes mellitus with diabetic chronic kidney disease; I12.9 Hypertensive chronic kidney disease with stage 1 through stage 4 chronic kidney disease, or unspecified chronic kidney disease; N18.30 Chronic kidney disease, stage 3 unspecified; M06.9 Rheumatoid arthritis, unspecified; Z88.8 Allergy status to other drugs, medicaments and biological substances; Z91.013 Allergy to seafood; Z96.651 Presence of right artificial knee joint; Z82.49 Family history of ischemic heart disease and other diseases of the circulatory system; E86.0 Dehydration; F45.8 Other somatoform disorders; K29.70 Gastritis, unspecified, without bleeding; K44.9 Diaphragmatic hernia without obstruction or gangrene; D64.9 Anemia, unspecified
CPT/HCPCS: 36415; 43239; 71260; 80053; 82550; 82553; 83735; 83970; 84443; 84484; 85025; 88305; 88312; 88342; 93005; 93306; 94799; 96361; 99284; G0378; J0360; J1160; J1885; J2001; J2250; J2270; J2405; J3010; J7030; Q9967